=== PATIENT | male | born 1950 | race Caucasian/White ===

== ENCOUNTER 2017-02-14 08:38 | Emergency (ER) | payer OTHER ==
[2017-02-14 08:48] VITALS: BP 193/90; PULSE 57; RESP 16; TEMP 97.7; O2SAT 96
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
== END 2017-02-14 09:17 | disposition home or self-care (01) ==
PROC: 2W2KX4Z Dressing of Left Finger using Bandage (ICD-10-PCS; principal; 2017-02-14)
DX: T23.122A Burn of first degree of single left finger (nail) except thumb, initial encounter (principal); T31.0 Burns involving less than 10% of body surface; X08.8XXA Exposure to other specified smoke, fire and flames, initial encounter